=== PATIENT | female | born 1975 | race Caucasian/White ===

== ENCOUNTER 2018-05-11 11:08 | Emergency (ER) | payer OTHER ==
[~2018-05-11] VITALS: Ht 149.9 cm; Wt 58.1 kg
[~2018-05-11 11:08] MED LIST: FLONASE16 GM NASAL; PRENATAL TABLE1 EAC1 PO
== END 2018-05-11 12:47 | disposition home or self-care (01) ==
LOC: ER 11:08
DX: S00.83XA Contusion of other part of head, initial encounter (principal); W22.8XXA Striking against or struck by other objects, initial encounter; Y93.89 Activity, other specified; Y92.89 Other specified places as the place of occurrence of the external cause; Y99.8 Other external cause status

== ENCOUNTER 2020-07-20 16:26 | Outpatient (CLI) | payer OTHER | END 2020-07-20 16:56 | disposition home or self-care (01) | LOC: LAB 16:26 | PROVIDERS: ATTEND Internal Medicine | DX: B34.8 Other viral infections of unspecified site (principal) ==

== ENCOUNTER 2020-07-25 05:45 | Day surgery (SDC) | payer OTHER | END 2020-07-25 15:10 | disposition home or self-care (01) | LOC: CIR.AMB 05:45 | PROVIDERS: ATTEND Obstetrics & Gynecology Maternal & Fetal Medicine | DX: N84.0 Polyp of corpus uteri (principal); Z20.822 Contact with and (suspected) exposure to COVID-19 ==